=== PATIENT | female | born 1995 | race African-American/Black ===

== ENCOUNTER 2018-11-18 08:43 | Emergency (ER) | payer SELFPAY ==
[2018-11-18] MEDS ORDERED: Naproxen 500 MG TAB ONE (09:17)
--- NOTE | 2018-11-18 09:38 | RAD ---
Exam:Exam: 3 views left foot HISTORY: Pain. Injury. COMPARISON: None FINDINGS: No fracture. No cortical irregularity. Lisfranc alignment is maintained. Joint spaces are p reserved. There is midfoot soft tissue swelling. IMPRESSION: Midfoot soft tissue swelling, without evidence of fracture.
--- NOTE | 2018-11-18 09:41 | RAD ---
Exam:3 views left ankle HISTORY: Pain. Injury. COMPARISON: None FINDINGS: Based on images provided, there appears to be widening of the medial joint space. The possi bility of ligamentous injury cannot be excluded. Definite fracture is not appreciated. IMPRESSION: Widening of the medial joint space. The possibility of ligamentous injury is raised. Osiris ramirez clinically.
--- NOTE | 2018-11-18 17:57 | RAD ---
Exam:3 views left ankle HISTORY: Pain. Injury. COMPARISON: None FINDINGS: Based on images provided, there appears to be widening of the medial joint space. The possi bility of ligamentous injury cannot be excluded. Definite fracture is not appreciated. IMPRESSION: Widening of the medial joint space. The possibility of ligamentous injury is raised. Osiris ramirez clinically. Transcribed Date/Time: 11/18/2018 5:57 PM
== END 2018-11-18 10:16 | disposition home or self-care (01) ==
LOC: NAV ERS 08:43
DX: S93.412A Sprain of calcaneofibular ligament of left ankle, initial encounter (principal); W18.30XA Fall on same level, unspecified, initial encounter

== ENCOUNTER → 2019-04-20 | Emergency (ER) | payer BC ==
[~2019-04-20] MED LIST: Acetaminophen 325 MG TAB ONE; Ibuprofen 200 MG TAB ONE; Ondansetron ODT 4 MG TAB ONE
--- NOTE | 2019-04-20 13:09 | RAD ---
EXAM: Chest 2 views: HISTORY: Sore throat and cough COMPARISON: None. FINDINGS: There is a normal-sized cardiomediastinal silhouette. There is no evidence of consolidation, mass, or pleural effusion. The bones are unremarkable. IMPRESSION: No evidence of acute cardiopulmonary disease
== END ==
LOC: NAV ERS 12:18
DX: J06.9 Acute upper respiratory infection, unspecified (principal)
CPT/HCPCS: 71046; 87081; 87430; 87804; 94760; J7620; Q0162

== ENCOUNTER 2019-08-14 18:25 | Emergency (ER) | payer BC, OTHER ==
[2019-08-14] MEDS ORDERED: Ventolin HFA Inhaler 60 PUFF INHALER ONE (19:13)
[2019-08-14] MEDS ORDERED: predniSONE 20 MG TAB ONE (19:14)
[2019-08-15 18:52] LABS: SARS-CoV-2 MS2 Positive; SARS-CoV-2 N Gene Negative; SARS-CoV-2 S Gene Negative; SARS-CoV-2 orf1ab Negative
== END 2019-08-14 19:30 | disposition home or self-care (01) ==
LOC: NAV ERS 18:25
DX: J98.01 Acute bronchospasm (principal); Z20.828 Contact with and (suspected) exposure to other viral communicable diseases
CPT/HCPCS: 87635; 99284; J7512; U0003

== ENCOUNTER 2019-11-29 23:05 | Emergency (ER) | payer BC, OTHER ==
[2019-11-29] MEDS ORDERED: Ondansetron ODT 4 MG TAB ONE (23:21)
[2019-11-29 23:30] LABS: Bilirubin Small (Negative); Blood, Urine Large (Negative); Clarity Slightly Cloudy (Clear); Glucose, Urine (Dipstick) Negative (Negative); Ketone, Urine 15 mg/dL (Negative); Leukocyte Negative (Negative); Nitrite Negative (Negative); Protein, Urine (Dipstick) > or equal to 300 mg/dL (Neg-Trace)
[2019-11-29 23:32] LABS: Pregnancy Test - Urine (BHCG) Negative (Negative); Pregu Control Background? CLEAR/WHITE (CLR/WHITE); Pregu Control Bar Appear? YES (CONTROL BAR); Specific Gravity 1.026 (1.002-1.036); Specific Gravity, Urine 1.026 (1.002-1.036)
[2019-11-29 23:34] LABS: Bacteria/HPF 2+ HPF (None Seen)
[2019-11-29 23:52] LABS: #Basophils 0.1 thou/uL (0.0-0.2); #Eosinphils 0.1 thou/uL (0.0-0.7); #Lymphocytes 2.2 thou/uL (1.20-3.40); #Monocytes 0.7 thou/uL (0.11-0.59); %Basophils 1.6 % (0.0-1.0); %Eosinophils 0.7 % (0.0-10.0); %Lymphocytes 27.2 % (21.0-51.0); %Monocytes 8.3 % (0.0-10.0); %Neutrophils 62.1 % (42.0-75.0); Hemoglobin 13.4 g/dL (12.0-16.0); Mean Corpuscular HGB CONC 30.3 g/dL (32.0-36.0); Mean Corpuscular Hemoglobin 25.6 pg (27.0-31.0); Mean Corpuscular Volume 84.4 fL (78.0-98.0); Mean Platelet Volume 10.7 fL (7.4-10.4); Platelet Count 275 thou/uL (130-400); RBC Distribution Width 13.9 % (11.5-14.5); Red Blood Cell (RBC) Count 5.21 mill/uL (4.20-5.40)
[2019-11-30 00:10] LABS: ALT (SGPT) 22 U/L (8-55); AST (SGOT) 19 U/L (5-34); Albumin 4.2 g/dL (3.5-5.0); Alkaline Phosphatase 70 U/L (40-110); Anion Gap 16 mmol/L (10-20); BUN (Urea Nitrogen) 5 mg/dL (7.0-18.7); Bilirubin, Total 0.6 mg/dL (0.2-1.2); Calc. Creatinine Clearance 0 mL/min (70-130); Calcium 9.8 mg/dL (7.8-10.44); Carbon Dioxide 24 mmol/L (22-29); Chloride 103 mmol/L (98-107); Estimated GFR-MDRD 78; Globulin 3.8 g/dL (2.4-3.5); Glucose 85 mg/dL (70-105); Potassium 3.9 mmol/L (3.5-5.1); Sodium 139 mmol/L (136-145)
== END 2019-11-30 00:50 | disposition home or self-care (01) ==
LOC: NAV ERS 23:05
DX: R11.2 Nausea with vomiting, unspecified (principal)
CPT/HCPCS: 80053; 81003; 81015; 81025; 85025; 99284; Q0162